=== PATIENT | female | born 1970 | race Caucasian/White ===

== ENCOUNTER → 2016-11-09 | Outpatient (CLI) | payer BC ==
[~2016-11-09] MED LIST: ASPIRIN 81M81 MG/TA2 PO; CELEXA 20MG20 MG/TAB PO; ESTRACE0.5 MG PO; ESTRACE2 MG PO; FORT1000TA PO; LIPOFEN150 MG PO; MASON NATURAL1200 MG PO; MELATONIN5 M1 PO; MULTIVITAMIN1 TA1 PO; SONATA 10MG10 MG PO; TURMERIC500 MG PO; VITAMIN D31000 I1 PO; ZOCOR 40MG40 MG PO
== END ==
LOC: MC.RAD 11:10
DX: Z12.31 Encounter for screening mammogram for malignant neoplasm of breast (principal)

== ENCOUNTER → 2016-11-25 | Outpatient (CLI) | payer BC | LOC: MC.RAD 13:00 | DX: R92.2 Inconclusive mammogram (principal) ==

== ENCOUNTER 2016-12-07 06:17 | Day surgery (SDC) | payer BC ==
[~2016-12-07] VITALS: Ht 160 cm; Wt 89.8 kg
[~2016-12-07 06:17] MED LIST changes: -CELEXA 20MG20 MG/TAB PO; -ESTRACE2 MG PO; -LIPOFEN150 MG PO; -MASON NATURAL1200 MG PO; -MELATONIN5 M1 PO; -SONATA 10MG10 MG PO; -TURMERIC500 MG PO; -VITAMIN D31000 I1 PO
[2016-12-07 07:04] VITALS: BP 126/78; PULSE 73; TEMP 98.3
[2016-12-07] MEDS ORDERED: SONATA 10MG10 MG PO (07:16)
[2016-12-07] MEDS ORDERED: MELATONIN5 M1 PO (07:17)
[2016-12-07] MEDS ORDERED: VITAMIN D31000 I1 PO (07:17)
[2016-12-07] MEDS ORDERED: ASPIRIN 81M81 MG/TA2 PO (07:18)
[2016-12-07] MEDS ORDERED: LIPOFEN150 MG PO (07:19)
[2016-12-07] MEDS ORDERED: MASON NATURAL1200 MG PO (07:19)
[2016-12-07] MEDS ORDERED: FORT1000TA PO (07:20)
[2016-12-07] MEDS ORDERED: ZOCOR 40MG40 MG PO (07:21)
[2016-12-07] MEDS ORDERED: CELEXA 20MG20 MG/TAB PO (07:21)
[2016-12-07] MEDS ORDERED: TURMERIC500 MG PO (07:22)
[2016-12-07] MEDS ORDERED: ESTRACE2 MG PO (07:22)
[2016-12-07 08:25] VITALS: BP 109/69; PULSE 65; TEMP 97.7
[2016-12-07 08:40] VITALS: BP 100/64; PULSE 69
[2016-12-07 08:55] VITALS: BP 104/69; PULSE 68
== END 2016-12-07 09:05 | disposition home or self-care (01) ==
LOC: SDCO 06:17
DX: Z12.11 Encounter for screening for malignant neoplasm of colon (principal); L72.8 Other follicular cysts of the skin and subcutaneous tissue; E11.9 Type 2 diabetes mellitus without complications; E78.00 Pure hypercholesterolemia, unspecified; Z79.84 Long term (current) use of oral hypoglycemic drugs; Z90.711 Acquired absence of uterus with remaining cervical stump; Z85.828 Personal history of other malignant neoplasm of skin
CPT/HCPCS: OP; J2250; J3010; J7030

== ENCOUNTER 2020-07-29 08:42 | Day surgery (SDC) | payer BC ==
[~2020-07-29] VITALS: Ht 160 cm; Wt 86.4 kg
[~2020-07-29 08:42] MED LIST changes: +CELEXA 20MG20 MG/TAB PO; +ESTRACE2 MG PO; +LIPOFEN150 MG PO; +MASON NATURAL1200 MG PO; +MELATONIN5 M1 PO; +SONATA 10MG10 MG PO; +TURMERIC500 MG PO; +VITAMIN D31000 I1 PO
[2020-07-29] MEDS ORDERED: LOFIBRA160 MG PO (09:18)
[2020-07-29] MEDS ORDERED: ZOCOR 20MG20 MG PO (09:18)
[2020-07-29] MEDS ORDERED: GLUCOPHAGE XR750 MG PO (09:19)
[2020-07-29 09:41] VITALS: BP 119/70; PULSE 64; TEMP 97.4
[2020-07-29 10:20] VITALS: BP 112/67; PULSE 65; TEMP 97
--- NOTE | 2020-07-29 10:20 | NUR ---
1020-Patient ambulated without difficulty from cart to recliner. Spouse brought back to sit with her. Vitals remain stable. Dr. Morris is in to discuss procedure findings. Given water and kylee crackers per request. She denies having any pain or nausea at present. 1030-Doing well and tolerating diet advance without any nausea or vomiting.
[2020-07-29 10:35] VITALS: BP 105/68; PULSE 67
--- NOTE | 2020-07-29 10:35 | NUR ---
1035-Patient continues doing well and vitals are stable. She tolerated kylee crackers, saltines, and water without any N/V. Passing flatus and abdomen remains soft and nontender.
[2020-07-29 10:50] VITALS: BP 118/79; PULSE 66; TEMP 97.6
--- NOTE | 2020-07-29 10:50 | NUR ---
1050-She continues doing well and has no complaints or concerns. IV site dc'd from her right hand; tip of catheter intact. Cotton ball and tape applied to removal site. She is getting dressed and ready for discharge home. 1100-Discussed discharge instructions with her and her spouse. They verbalized understanding and deny having any further questions or concerns at this time. Copy of instructions and procedure pictures provided to them. 1105-Taken via wheelchair and assisted into private vehicle with her spouse. Belongings and education packet with them.
== END 2020-07-29 11:05 | disposition home or self-care (01) ==
LOC: SDCO
DX: Z15.09 Genetic susceptibility to other malignant neoplasm (principal); E11.9 Type 2 diabetes mellitus without complications; Z79.84 Long term (current) use of oral hypoglycemic drugs; Z79.899 Other long term (current) drug therapy; Z79.82 Long term (current) use of aspirin; Z90.710 Acquired absence of both cervix and uterus; Z85.820 Personal history of malignant melanoma of skin; Z85.51 Personal history of malignant neoplasm of bladder; Z90.01 Acquired absence of eye; Z85.840 Personal history of malignant neoplasm of eye; Z85.3 Personal history of malignant neoplasm of breast; Z80.42 Family history of malignant neoplasm of prostate; Z80.0 Family history of malignant neoplasm of digestive organs
CPT/HCPCS: J2704